=== PATIENT | female | born 1970 | race Caucasian/White ===

== ENCOUNTER → 2016-04-26 | Day surgery (SDC) | payer BC, OTHER ==
[2016-04-22 07:44] VITALS: Ht 165.1 cm; Wt 81.8 kg
[~2016-04-26] VITALS: Ht 165.1 cm; Wt 81.8 kg
[~2016-04-26] MED LIST: LIDOCAINE HCL 2% 2 ML VIAL (20MG/ML) ONE; MIDAZOLAM HCL 1 MG/ML 2ML VIAL ONE; MULT-506 PO; ONDANSETRON INJ 2 MG/ML 2 ML VIAL ONE; PROPOFOL IV EMULSION 10 MG/ML 20 ML VIAL IV ONE; SODIUM CHLORIDE 0.9% 500ML 500 ML IV ONE
--- NOTE | 2016-04-26 13:12 | Endo History and Physical ---
History & Physical Date of Service: Apr 26, 2016. Chief Complaint: Anemia and abnormal CT scan. Referring Physician: Dr. Ramirez History of Present Illness 45 yo CF who presents for EGD and colonoscopy secondary to anemia and abnormal CT scan. Past Surgical History Hx Cardiac Surgery: No Hx Internal Defibrillator: No Hx Pacemaker: No Hx Abdominal Surgery: Yes (TUBAL LIGATION) Hx of Implantable Prosthesis: No Hx Post-Op Nausea and Vomiting: No Hx Cancer Surgery: No Hx Thoracic Surgery: No Hx Orthopedic: No Hx Urinary Tract Surgery: No Family History IBD Social History Smoking Status: Former Smoker Hx Substance Use: No Hx Alcohol Use: Yes (OCCASS) Allergies Coded Allergies: Fentanyl (Verified Allergy, Mild, DIFFICULTY BREATHING, 04/26/16) Current Medications Reported Home Medications Medications Dose Route/Sig Max Daily Dose Days Date Category Multivitamin (Multivitamins) Tab 1 Tab PO QAM 04/22/16 Reported Vital Signs Weight (Kilograms): 81.82 Height (Feet): 5 Height (Inches): 5 Physical Exam General Appearance: WD/WN, no apparent distress Respiratory/Chest: Auscultation: breath sounds normal Cardiovascular: Heart Auscultation: RRR Abdomen: Bowel Sounds: normal Inspection & Palpation: soft, non-distended, no tenderness, guarding & rebound Assessment and Plan Assessment: 45 yo CF who presents for EGD and colonoscopy secondary to anemia and abnormal CT scan. Plan: Proceed with colonoscopy.
--- NOTE | 2016-04-26 14:00 | GI REPORT ---
Procedure Date: 04/26/2016 1:17 PM Procedure: Upper GI endoscopy Indications: Iron deficiency anemia, Abnormal CT of the GI tract Medicines: Monitored Anesthesia Care Complications: No immediate complications. Estimated Blood Loss: Estimated blood loss: none. Procedure: Pre-Anesthesia Assessment: - Prior to the procedure, a History and Physical was performed, and patient medications and allergies were reviewed. The patient's tolerance of previous anesthesia was also reviewed. The risks and benefits of the procedure and the sedation options and risks were discussed with the patient. All questions were answered, and informed consent was obtained. Prior Anticoagulants: The patient has taken no previous anticoagulant or antiplatelet agents. ASA Grade Assessment: II - A patient with mild systemic disease. After reviewing the risks and benefits, the patient was deemed in satisfactory condition to undergo the procedure. After obtaining informed consent, the endoscope was passed under direct vision. Throughout the procedure, the patient's blood pressure, pulse, and oxygen saturations were monitored continuously. The scope was introduced through the mouth, and advanced to the second part of duodenum. The upper GI endoscopy was accomplished without difficulty. The patient tolerated the procedure well. Findings: Mildly severe esophagitis with no bleeding was found. The stomach was normal. The examined duodenum was normal. Impression: - Mildly severe reflux esophagitis. - Normal stomach. - Normal examined duodenum. - No specimens collected. Recommendation: - Resume previous diet. - Continue present medications. - Return to GI office as previously scheduled. - Perform a colonoscopy today. Nilton Ochoa DO 04/26/2016 1:59:13 PM This report has been signed electronically. Note Initiated On: 04/26/2016 1:17 PM
--- NOTE | 2016-04-26 14:05 | GI REPORT ---
Procedure Date: 04/26/2016 1:37 PM Procedure: Colonoscopy Indications: Iron deficiency anemia, Abnormal CT of the GI tract Medicines: Monitored Anesthesia Care Complications: No immediate complications. Estimated Blood Loss: Estimated blood loss: none. Procedure: Pre-Anesthesia Assessment: - Prior to the procedure, a History and Physical was performed, and patient medications and allergies were reviewed. The patient's tolerance of previous anesthesia was also reviewed. The risks and benefits of the procedure and the sedation options and risks were discussed with the patient. All questions were answered, and informed consent was obtained. Prior Anticoagulants: The patient has taken no previous anticoagulant or antiplatelet agents. ASA Grade Assessment: II - A patient with mild systemic disease. After reviewing the risks and benefits, the patient was deemed in satisfactory condition to undergo the procedure. After I obtained informed consent, the scope was passed under direct vision. Throughout the procedure, the patient's blood pressure, pulse, and oxygen saturations were monitored continuously. The scope was introduced through the anus and advanced to the terminal ileum. The colonoscopy was performed without difficulty. The patient tolerated the procedure well. The quality of the bowel preparation was good. The terminal ileum, ileocecal valve, appendiceal orifice, and rectum were photographed. Findings: Non-bleeding internal hemorrhoids were found during retroflexion. The hemorrhoids were small. Impression: - Non-bleeding internal hemorrhoids. - No specimens collected. Recommendation: - Resume previous diet. - Continue present medications. - Repeat colonoscopy in 10 years for surveillance. - Return to GI office as previously scheduled. Nilton Ochoa DO 04/26/2016 2:04:30 PM This report has been signed electronically. Note Initiated On: 04/26/2016 1:37 PM
--- NOTE | 2016-04-26 14:07 | Discharge Instructions ---
Endoscopy Patient Instructions Date / Procedure(s) Performed Apr 26, 2016. Colonoscopy, EGD Allergy Information Coded Allergies: Fentanyl (Verified Allergy, Mild, DIFFICULTY BREATHING, 04/26/16) Discharge Date / Findings Apr 26, 2016. EGD: Reflux esophagitis Colonoscopy: Internal hemorrhoids Medication Instructions OK to resume all medications today as prescribed. Reported Home Medications Medications Dose Route/Sig Max Daily Dose Days Date Category Multivitamin (Multivitamins) Tab 1 Tab PO QAM 04/22/16 Reported Provider Instructions Activity Restrictions - No exercising or heavy lifting for 24 hours. - Do not drink alcohol the day of the procedure. - Do not drive a car or operate machinery until the day after the procedure. - Do not make any important decisions or sign important papers in 24 hours after the procedure. Following Day: - Return to full activity which may include returning to work/school. Diet Start your diet with liquids and light foods (jello, soup, juice, toast). Then eat your usual diet if not nauseated. Treatment For Common After Affects For mild abdominal pain, bloating, or excessive gas: - Rest - Eat lightly - Lie on right side Follow-Up Information Follow-up with Dr Ramirez as scheduled Anesthesia Information What You Should Know You have had a procedure that required some medicine to reduce anxiety and discomfort. This treatment is called moderate sedation. After receiving the treatment, you may be sleepy, but you will be able to breathe on your own. The effects of the treatment may last for several hours. Follow these instructions along with Activity/Diet recommendations noted above: * Do NOT do anything where dizziness or clumsiness would be dangerous. * Rest quietly at home today, then you can be up and about tomorrow. * Have a responsible person stay with you the rest of today. * You may have had an I.V. today. If so, you may take the dressing off later today. Recommendations Call your doctor if: * Trouble breathing * Continuous vomiting for more than 24 hours * Temperature above 101 degrees * Severe abdominal pain or bloating * Pain not relieved by pain medicine ordered * There is increased drainage or redness from any incision * A large amount of rectal bleeding greater than 2-3 tablespoons. (If you had a polyp/s removed or have hemorrhoids, a small amount of blood - from the rectum is to be expected.) * You have any unanswered questions or concerns. IN THE EVENT OF A SERIOUS EMERGENCY, GO TO THE NEAREST EMERGENCY ROOM Your discharge instructions were prepared by provider Nilton Ochoa. Patient Instructions Signature Page Ronn Case Patient (or Guardian) Signature/Date: I have read and understand the instructions given to me by my caregivers. Caregiver/RN/Doctor Signature/Date: The above-named patient and/or guardian has received patient instructions on this date. + Original Patient Signature Page (only) stays with chart. Please make copy for patient.
[2016-04-26 14:29] VITALS: BP 125/69; PULSE 64; O2SAT 100
--- NOTE | 2016-04-26 14:36 | Anesthesiology Progress Note ---
Anesthesia Post Op Note Date & Time Apr 26, 2016 at 14:35 Vital Signs Pain Intensity: 0 Vital Signs Past 12 Hours Date Time Temp Pulse Resp B/P Pulse Ox O2 Delivery O2 Flow Rate FiO2 04/26/16 14:29 64 16 125/69 100 Room Air 04/26/16 14:14 69 16 123/65 100 Room Air 04/26/16 13:59 73 16 140/64 98 Room Air 04/26/16 13:12 36.6 67 20 136/64 100 Room Air Notes Mental Status: alert / awake / arousable Nausea / Vomiting: adequately controlled Pain: adequately controlled Airway Patency, RR, SpO2: stable & adequate BP & HR: stable & adequate Hydration State: stable & adequate Anesthetic Complications: no major complications apparent
== END | disposition home or self-care (01) ==
LOC: C.GI 12:22
PROVIDERS: ATTEND Internal Medicine
DX: D50.9 Iron deficiency anemia, unspecified (principal); R93.3 Abnormal findings on diagnostic imaging of other parts of digestive tract; K64.8 Other hemorrhoids; K21.0 Gastro-esophageal reflux disease with esophagitis; Z98.51 Tubal ligation status; Z87.891 Personal history of nicotine dependence; Z68.30 Body mass index [BMI] 30.0-30.9, adult

== ENCOUNTER → 2016-05-03 | Outpatient (CLI) | payer OTHER ==
[~2016-05-03] MED LIST changes: -LIDOCAINE HCL 2% 2 ML VIAL (20MG/ML) ONE; -MIDAZOLAM HCL 1 MG/ML 2ML VIAL ONE; -ONDANSETRON INJ 2 MG/ML 2 ML VIAL ONE; -PROPOFOL IV EMULSION 10 MG/ML 20 ML VIAL IV ONE; -SODIUM CHLORIDE 0.9% 500ML 500 ML IV ONE
--- NOTE | 2016-05-04 12:41 | MAMMOGRAPHY REPORT ---
BILATERAL DIGITAL SCREENING MAMMOGRAM TOMOSYNTHESIS WITH CAD: 05/03/2016 CLINICAL HISTORY: Routine screening. Patient has no complaints. TECHNIQUE: Breast tomosynthesis in addition to standard 2D mammography was performed. Current study was also evaluated with a Computer Aided Detection (CAD) system. COMPARISON: Comparison is made to exams dated: 04/12/2014 mammogram, 05/02/2015 mammogram, 01/26/2012 mammogram, 08/18/2010 mammogram - [facility], and 05/02/2008. BREAST COMPOSITION: The tissue of both breasts is heterogeneously dense, which may obscure small ma sses. FINDINGS: There are scattered and grouped benign-appearing round microcalcifications bilaterally. N o suspicious mass, architectural distortion or cluster of new, suspicious microcalcifications is see n. IMPRESSION: ACR BI-RADS CATEGORY 1: NEGATIVE There is no mammographic evidence of malignancy. A 1 year screening mammogram is recommended. The p atient will receive written notification of the results. Approximately 10% of breast cancers are not detected with mammography. A negative mammographic repor t should not delay biopsy if a clinically suggestive mass is present. Nimo Torres M.D. ay/:05/03/2016 21:59:30 Ceramic Engineering Professor: Shyla BANUELOS(Karol)(Marti), [facility] letter sent: Normal 1/2 BI-RADS Code: ACR BI-RADS Category 1: Negative
== END | disposition home or self-care (01) ==
LOC: C.MAMM 15:32
PROVIDERS: ATTEND Obstetrics & Gynecology
DX: Z12.31 Encounter for screening mammogram for malignant neoplasm of breast (principal)

== ENCOUNTER → 2016-08-18 | Outpatient (CLI) | payer OTHER | END | disposition home or self-care (01) | LOC: C.PAPS 10:53 | PROVIDERS: ATTEND Obstetrics & Gynecology | DX: Z01.419 Encounter for gynecological examination (general) (routine) without abnormal findings (principal) ==

== ENCOUNTER → 2016-11-22 | Outpatient (CLI) | payer OTHER ==
[2016-11-22 16:59] LABS: BASO % 0.5 %; BASO ABS # 0.05 K/uL (0-0.2); COMPLETE YES; HEMATOCRIT 41.9 % (37-47); IG% 0.3 %; LYMPH % 24.8 %; LYMPH ABS # 2.27 K/uL (1.2-3.4); MEAN CELL VOLUME 89.1 fL (80-100); MEAN CORPUSCULAR HEMOGLOBIN 29.4 pg (25-34); MEAN CORPUSCULAR HGB CONC 32.9 g/dl (32-36); MEAN PLATELET VOLUME 10.5 fL (7.4-10.4); MONO % 7.5 %; NEUT % 61.9 %; PLATELET COUNT 358 K/uL (130-400); WHITE BLOOD COUNT 9.17 K/uL (4.8-10.8)
== END | disposition home or self-care (01) ==
LOC: C.LABBC 13:04
PROVIDERS: ATTEND Family Medicine
DX: B02.29 Other postherpetic nervous system involvement (principal)

== ENCOUNTER → 2017-05-04 | Outpatient (CLI) | payer OTHER ==
--- NOTE | 2017-05-05 14:40 | MAMMOGRAPHY REPORT ---
BILATERAL DIGITAL SCREENING MAMMOGRAM TOMOSYNTHESIS WITH CAD: 05/04/2017 CLINICAL HISTORY: Routine screening examination. TECHNIQUE: Breast tomosynthesis in addition to standard 2D mammography was performed. Current study was also evaluated with a Computer Aided Detection (CAD) system. COMPARISON: Comparison is made to exams dated: 05/03/2016 mammogram, 05/02/2015 mammogram, 04/12/2014 ma mmogram, 01/26/2012 mammogram, 08/18/2010 mammogram - [facility], and 05/02/2008. BREAST COMPOSITION: The tissue of both breasts is heterogeneously dense, which may obscure small mas ses. FINDINGS: There is a possible cluster of microcalcifications in the 12:00 versus central right breas t, for which additional spot magnification views are recommended. There are other scattered benign-appearing calcifications in the breasts. No other suspicious mass, a rchitectural distortion or cluster of microcalcifications is seen. IMPRESSION: ACR BI-RADS CATEGORY 0: INCOMPLETE EVALUATION: NEED ADDITIONAL IMAGING EVALUATION The possible cluster of microcalcifications in the 12:00 versus central right breast needs additional evaluation. The patient will be called to schedule an appointment. Approximately 10% of breast cancers are not detected with mammography. A negative mammographic report should not delay biopsy if a clinically suggestive mass is present. Nimo Torres M.D. ay/:05/04/2017 15:28:10 Mail Forwarding System Markup Clerk: Nicol BANUELOS (R)(Marti), [facility] letter sent: Addl Imaging 0 BI-RADS Code: ACR BI-RADS Category 0: Incomplete Evaluation: Need Additional Imaging Evaluation
== END | disposition home or self-care (01) ==
LOC: C.MAMM 15:06
PROVIDERS: ATTEND Family Medicine
DX: Z12.31 Encounter for screening mammogram for malignant neoplasm of breast (principal); R92.0 Mammographic microcalcification found on diagnostic imaging of breast

== ENCOUNTER → 2017-05-12 | Outpatient (CLI) | payer OTHER ==
--- NOTE | 2017-05-12 15:54 | MAMMOGRAPHY REPORT ---
UNILATERAL RIGHT DIGITAL DIAGNOSTIC MAMMOGRAM: 05/12/2017 CLINICAL HISTORY: Callback from screening mammogram for right breast calcifications. TECHNIQUE: Spot magnification right cc and ML views were obtained. COMPARISON: Comparison is made to exams dated: 05/04/2017 mammogram, 05/03/2016 mammogram, 05/02/2015 linda mogram, 04/12/2014 mammogram, 01/26/2012 mammogram, and 08/18/2010 mammogram - [facility]. BREAST COMPOSITION: The tissue of the right breast is heterogeneously dense, which may obscure small masses. FINDINGS: There is a small 4 mm cluster of round/punctate calcifications in the right 12:00 breast. One to 2 amorphous calcifications are also seen in this region on the cc view, which are shown to lay er more superiorly on the lateral view and are consistent with benign milk of calcium. When compared to prior exams, the calcifications are stable dating back to at least the March 2014 exam, and ar e considered benign given long-term stability. No new or suspicious clusters of microcalcifications are seen on the additional views. IMPRESSION: ACR BI-RADS CATEGORY 2: BENIGN The right breast calcifications are stable dating back to at least the 2013 exam, and are considered benign given long-term stability. There is no mammographic evidence of malignancy. A 1 year screenin g mammogram is recommended. The patient has been verbally notified of the results. Approximately 10% of breast cancers are not detected with mammography. A negative mammographic report should not delay biopsy if a clinically suggestive mass is present. Aicha Carranza M.D. ah/:05/12/2017 10:30:38 Electronic Field Service Engineer: Shyla BANUELOS(Karol)(M), [facility] letter sent: Normal / BI-RADS Code: ACR BI-RADS Category 2: Benign
== END | disposition home or self-care (01) ==
LOC: C.MAMM 10:10
PROVIDERS: ATTEND Family Medicine
DX: R92.0 Mammographic microcalcification found on diagnostic imaging of breast (principal)

== ENCOUNTER 2017-08-17 21:01 | Emergency (ER) | payer OTHER ==
[~2017-08-17] VITALS: Ht 165.1 cm; Wt 83.9 kg
[2017-08-17 21:10] VITALS: TEMP 37.4; Ht 165.1 cm; Wt 83.9 kg
[2017-08-17 21:12] VITALS: O2SAT 97
[2017-08-17] MEDS ORDERED: CYAN100020 PO (21:30)
[2017-08-17] MEDS ORDERED: PHEN37.585 PO (21:30)
[2017-08-17 21:38] LABS: HEMATOCRIT 43.6 % (37-47); HEMOGLOBIN 15.1 g/dL (12.0-16.0); MEAN CELL VOLUME 84.8 fL (80-100); MEAN CORPUSCULAR HEMOGLOBIN 29.4 pg (25-34); MEAN CORPUSCULAR HGB CONC 34.6 g/dl (32-36); MEAN PLATELET VOLUME 9.9 fL (7.4-10.4); PLATELET COUNT 398 K/uL (130-400); RED CELL DISTRIBUTION WIDTH CV 13.2 % (11.5-14.5); RED CELL DISTRIBUTION WIDTH SD 40.9 fL (36.4-46.3); WHITE BLOOD COUNT 8.36 K/uL (4.8-10.8)
[2017-08-17 21:56] LABS: PTT PATIENT 27.7 SECONDS (21.0-31.0)
[2017-08-17] MEDS ORDERED: SODIUM CHLORIDE 0.9% 1000ML 1,000 ML IV STA (21:58)
[2017-08-17 22:02] LABS: ALBUMIN 4.2 gm/dl (3.4-5.0); ALT/SGPT 19 U/L (12-78); AST/SGOT 13 U/L (15-37); BLOOD UREA NITROGEN 9 mg/dl (7-18); CALCIUM 9.5 mg/dl (8.5-10.1); CARBON DIOXIDE 28 mmol/L (21-32); CREATININE 0.75 mg/dl (0.60-1.20); GLUCOSE 93 mg/dl (70-99); POTASSIUM 3.1 mmol/L (3.5-5.1); SODIUM 138 mmol/L (136-145)
--- NOTE | 2017-08-17 22:04 | DIAGNOSTIC IMAGING REPORT ---
CHEST ONE VIEW PORTABLE CLINICAL HISTORY: Chest pain. COMPARISON STUDY: Chest radiograph and chest CT March 18, 2016. FINDINGS: Lung volumes are normal. There is no consolidation or evidence for pulmonary edema. No pneumothorax or pleural effusion is noted. Cardiomediastinal silhouette is normal. IMPRESSION: No acute cardiopulmonary findings. Electronically signed by: Gary Arroyo M.D. 08/17/2017 10:03 PM Dictated Date/Time: 08/17/2017 10:02 PM
[2017-08-17 22:07] LABS: ALKALINE PHOSPHATASE 69 U/L (45-117); CKMB < 0.5 ng/ml (0.5-3.6); TOTAL PROTEIN 7.9 gm/dl (6.4-8.2)
[2017-08-17] MEDS ORDERED: POTASSIUM CHLORIDE 10 MEQ TABCR PO STA (22:18)
[2017-08-17 22:44] LABS: LIPASE 139 U/L (73-393)
[2017-08-17 23:58] VITALS: BP 122/69; PULSE 81; O2SAT 98
--- NOTE | 2017-08-18 01:56 | EMERGENCY ROOM VISIT NOTE ---
History First contact with patient: 21:22 Chief Complaint: CHEST PAIN Stated Complaint: CHEST TIGHTNESS Nursing Triage Summary: Patient presents to ED via ALS with c/o chest pain. Chest pain started about 1.5 hours prior to arrival to ED. Patient reports pain started in her back, between shoulder blades and then moved to center of her chest. Describes the pain as a tightness. Denies nausea or vomiting with pain. Some shortness of breath. . EMS gave patient 2 doses of nitro and 324mg of PO Aspirin, which did relieve the chest pain. Patient is currently taking Adapex for weight loss through 's clinic. History of Present Illness The patient is a 46 year old female who presents to the Emergency Room with complaints of epigastric pain and mid back pain while eating cheese and crackers tonight that lasted for a few hours and is now resolved after EMS gave aspirin and nitroglycerin. Patient describes the pain as discomfort, 4 out of 10. Nothing made it worse. Patient denies exertional chest pain, dyspnea, abdominal pain, leg pain or swelling, lightheadedness, dizziness, diaphoresis. Patient states she has been underneath more stress lately. She has a therapist. Patient denies history of blood pressure cholesterol or diabetes. She occasionally smokes. She is traveled recently. Her father had heart disease in the 60s. There is no family history of blood clots. Patient is on a diet pill of Adipex. Review of Systems An 10 system review of systems was completed with positives and pertinent negatives listed in the HPI. Past Medical/Surgical History Medical Problems: (1) Anemia Family History FHx: heart disease Social History Smoking Status: Current Some Day Smoker Alcohol Use: occasionally Drug Use: none Marital Status: Housing Status: lives with family Occupation Status: employed Current/Historical Medications Scheduled Cyanocobalamin (Vitamin B12), 1,000 MCG PO DAILY Multivitamin (Multivitamin), 1 TAB PO QAM Phentermine Hcl (Adipex P), 37.5 MG PO DAILY Physical Exam Vital Signs Date Time Temp Pulse Resp B/P (MAP) Pulse Ox O2 Delivery O2 Flow Rate FiO2 08/17/17 23:58 81 122/69 98 08/17/17 22:06 78 115/77 98 Room Air 08/17/17 21:22 77 08/17/17 21:12 97 Room Air 08/17/17 21:10 37.4 77 124/84 99 Room Air 08/17/17 21:07 97 Room Air Physical Exam VITALS: Vitals are noted on the nurse's note and reviewed by myself. Vital signs stable. GENERAL: Pleasant femur, in no acute distress, nondiaphoretic, well-developed well-nourished. SKIN: The skin was without rashes, erythema, edema, or bruising. There is no tenting of the skin. Capillary reflex less than 2 seconds. HEAD: Normocephalic atraumatic. EARS: External auditory canals clear, tympanic membranes pearly cage without erythema or effusion bilaterally. EYES: Pupils equal round and reactive to light and accommodation. Conjunctivae without injection, sclerae without icterus. Extraocular movements intact. NOSE: Patent, turbinates without inflammation or discharge. MOUTH: Mucous membranes moist. Pharynx without erythema or exudate. Uvula midline. Airway patent. Tongue does not deviate. NECK: Supple without nuchal rigidity. No lymphadenopathy. No thyromegaly. Cervical spine is nontender. No JVD. HEART: Regular rate and rhythm without murmurs gallops or rubs. LUNGS: Clear to auscultation bilaterally without wheezes, rales or rhonchi. No retractions or accessory muscle use. ABDOMEN: Positive bowel sounds x 4. Normal tympanic percussion. Soft, nontender, without masses or organomegaly. Serrano sign negative. No guarding or rebound tenderness. No CVA tenderness MUSCULOSKELETAL: No muscle atrophy, erythema, or edema noted. NEURO: Patient was alert and oriented to person place and time. Normal sensation to light and sharp touch. No focal neurological deficits. Medical Decision & Procedures Laboratory Results 08/17/17 20:35 08/17/17 20:35 Test 08/17/17 20:35 08/17/17 21:18 08/17/17 21:23 08/17/17 23:28 Red Blood Count 5.14 M/uL (4.2-5.4) Mean Corpuscular Volume 84.8 fL (80-100) Mean Corpuscular Hemoglobin 29.4 pg (25-34) Mean Corpuscular Hemoglobin Concent 34.6 g/dl (32-36) RDW Standard Deviation 40.9 fL (36.4-46.3) RDW Coefficient of Variation 13.2 % (11.5-14.5) Mean Platelet Volume 9.9 fL (7.4-10.4) Prothrombin Time 10.7 SECONDS (9.0-12.0) Prothromb Time International Ratio 1.0 (0.9-1.1) Activated Partial Thromboplast Time 27.7 SECONDS (21.0-31.0) Partial Thromboplastin Ratio 1.1 Anion Gap 5.0 mmol/L (3-11) Est Creatinine Clear Calc Drug Dose 99.2 ml/min Estimated GFR () 110.0 Estimated GFR (Non- 94.9 BUN/Creatinine Ratio 12.6 (10-20) Calcium Level 9.5 mg/dl (8.5-10.1) Magnesium Level 2.2 mg/dl (1.8-2.4) Total Bilirubin 1.5 mg/dl (0.2-1) Aspartate Amino Transf (AST/SGOT) 13 U/L (15-37) Alanine Aminotransferase (ALT/SGPT) 19 U/L (12-78) Alkaline Phosphatase 69 U/L (45-117) Total Creatine Kinase 43 U/L (26-192) Creatine Kinase MB < 0.5 ng/ml (0.5-3.6) Creatine Kinase MB Ratio (0-3.0) Total Protein 7.9 gm/dl (6.4-8.2) Albumin 4.2 gm/dl (3.4-5.0) Globulin 3.7 gm/dl (2.5-4.0) Albumin/Globulin Ratio 1.1 (0.9-2) Lipase 139 U/L (73-393) Urine Color YELLOW Urine Appearance CLEAR (CLEAR) Urine pH 6.0 (4.5-7.5) Urine Specific [place] 1.018 (1.000-1.030) Urine Protein NEG (NEG) Urine Glucose (UA) NEG (NEG) Urine Ketones 2+ (NEG) Urine Occult Blood NEG (NEG) Urine Nitrite NEG (NEG) Urine Bilirubin NEG (NEG) Urine Urobilinogen NEG (NEG) Urine Leukocyte Esterase NEG (NEG) Bedside D-Dimer 107 ng/mlFEU (0-450) Bedside Troponin I < 0.030 ng/ml (0-0.045) Medications Administered Medications (Trade) Dose Ordered Sig/Taiwo Route Start Time Stop Time Status Last Admin Dose Admin Sodium Chloride 1,000 ml @ 999 mls/hr Q1H1M STAT IV 08/17/17 21:58 08/17/17 22:58 DC 08/17/17 22:02 999 MLS/HR Potassium Chloride (Klor-Con M10) 40 meq NOW STAT PO 08/17/17 22:18 08/17/17 22:19 DC 08/17/17 22:58 40 MEQ ED Course Prior records/ancillary studies reviewed. Triage Nursing notes reviewed. Additional history obtained from family. The patient's history was concerning for chest pain. Differential diagnosis: Etiologies such as cardiac ischemia, aortic dissection, pulmonary embolism, pneumonia, pneumothorax, musculoskeletal, infections, pericarditis, myocarditis , esophageal rupture, gastrointestinal, as well as others were entertained. Physical examination: As above. ER treatment provided: Patient was observed On reassessment the patient felt better. Diagnostic interpretation by me: The electrocardiogram was negative for pathologic change. Normal sinus, normal intervals, no acute ST-T wave changes. Impression normal sinus rhythm interpreted by myself The labs revealed 2 negative troponins greater than 2 hours apart. Negative d- dimer. Hypokalemia this is replaced orally Imaging studies: Chest x-ray with no acute consolidation, pneumothorax or free of my interpretation HEART SCORE: Hx: high/mod/low suspicion: 0 ECG: ST depression/nonspecific changes/normal: 0 Age: Greater than 65/45-64/less than 45: 1 Risk factors: (Hypertension, hyperlipidemia, diabetes, coronary disease, tobacco use, cocaine use): 2 Troponin: Greater than 2 times normal limits/1-2 times normal limits/normal: 0 Total: 3 Wells Score Symptoms of DVT 3pt: 0 Alternative diagnoses better explains illness 3pts: 0 Tachycardia greater than 100 1.5 pts 0 Immobilization greater than 3 days or surgery in the previous 4 weeks 1.5 pts: 0 Prior history of DVT or PE 1.5 pts: 0 Presence of hemoptysis 1pt: 0 Presence of malignancy 1pt: 0 (Score greater than 6 is high probability, score 2-6 moderate probability, score less than 2 low probability) Total: 0 Exam and history seem consistent with epigastric discomfort that could be related to esophageal spasm. Patient had unremarkable workup as above. She has been underneath more stress lately. She had 2 negative troponins. Negative d-dimer. Normal EKG. She was advised to follow-up family care for outpatient cardiology referral with the next week or 2 for further evaluation and workup for her symptoms and she was advised to either stop taking her diet pill or increase her electrolytes and hydration status as she was mildly dehydrated and potassium was low today most likely secondary to her diet pill. Patient was advised to return to the ER immediately for chest pain, difficulty breathing, diaphoresis, worsening signs or symptoms or as needed.By the evaluation outlined above emergent etiologies such as cardiac ischemia, aortic dissection, pulmonary embolism, pneumonia, pneumothorax, infections, pericarditis, myocarditis, gastrointestinal, as well as others were deemed relatively unlikely. The pt informed about the findings as listed above. All questions were answered and pleased with the treatment. Return instructions were outlined and the patient was discharged in stable condition. Case reviewed with my attending Referral: The patient was referred back to primary care physician for follow-up in 2 to 3 days for a recheck of the current condition. The chart was completed utilizing [employer] Speech voice recognition software. Grammatical errors, random word insertions, pronoun errors, and incomplete sentences are an occassional consequence of this system due to software limitations, ambient noise, and hardware issues. Any formal questions or concerns about the content, text, or information contained within the body of this dictation should be directly addressed to the physician assistant business manager for clarification. Medical Decision As above Medication Reconcilliation Current Medication List: was personally reviewed by me Blood Pressure Screening Patient's blood pressure: Normal blood pressure Impression Primary Impression: Hypokalemia Additional Impression: Epigastric pain Departure Information Dispostion Home / Self-Care Condition GOOD Forms Call Back Authorization, HOME CARE DOCUMENTATION FORM, Work Instructions, Return To Work: 1 day IMPORTANT VISIT INFORMATION Patient Instructions Chest Pain - [facility], Hypokalemia Aguilar, My [facility] Additional Instructions Your potassium is low today. Recommend that you eat potassium containing products such as white potatoes and bananas. You were slightly dehydrated also. Both of these are most likely from taking your diet pill causing the dehydration and the low potassium. Recommend that you eat a well balanced diet and stay hydrated if you decide to continue taking your diet pill. Acetaminophen(Tylenol) may be used for fever or pain. Use 500mg every 4 -6 hours as needed. Avoid using more than 3000mg in a 24 hour period. Rest and drink plenty of fluids as tolerated. Continue current medications. Avoid strenuous activities and anything that worsens your pain. Resume normal activities once your symptoms resolve. Return to the ER immediately for worsening or persistent chest pain, abdominal pain, vomiting, fevers, chest pains, difficulty breathing, worsening of your condition, or as needed. Follow up with your primary physician in 2-3 days for a recheck of your current condition. Recommend outpatient cardiology follow-up for your chest pains today. Your family care doctor can arrange follow-up for this. Work Instructions Return To Work: 1 day Problem Qualifiers
== END 2017-08-17 23:58 | disposition home or self-care (01) ==
LOC: C.EDB 21:01 → EDBD 21:01 → C.EDB 23:58
DX: E87.6 Hypokalemia (principal); R10.13 Epigastric pain; F17.210 Nicotine dependence, cigarettes, uncomplicated; Z79.899 Other long term (current) drug therapy

== ENCOUNTER 2018-07-31 16:45 | Observation (INO) ==
[2018-07-31] MEDS ORDERED: MoRPHine SULFATE 4 MG/ML 1 ML CARP\\VIAL IV STA (17:02)
[2018-07-31] MEDS ORDERED: ONDANSETRON INJ 2 MG/ML 2 ML VIAL IV STA (17:02)
[2018-07-31] MEDS ORDERED: SODIUM CHLORIDE 0.9% 1000ML 1,000 ML IV SCH (17:15)
[2018-07-31 17:38] LABS: Basophils # (auto) 0.12 K/uL (0-0.2); Basophils % (auto) 1.8 %; Eosinophils # (auto) 0.56 K/uL (0-0.5); Eosinophils % (auto) 8.4 %; Hematocrit (blood only) 37.5 % (37-47); Hemoglobin 12.8 g/dL (12.0-16.0); Immature Granulocytes # (auto) 0.02 K/uL (0.00-0.02); Immature Granulocytes % (auto) 0.3 %; Lymphocytes # (auto) 2.87 K/uL (1.2-3.4); Lymphocytes % (auto) 43.1 %; Mean Corpuscular Hgb Conc 34.1 g/dL (32-36); Mean Platelet Volume 9.3 fL (7.4-10.4); Monocytes # (auto) 0.61 K/uL (0.11-0.59); Monocytes % (auto) 9.2 %; Neutrophils # (auto) 2.48 K/uL (1.4-6.5); Neutrophils % (auto) 37.2 %; Platelet Count 275 K/uL (130-400); RDW Coefficient of Variation 13.7 % (11.5-14.5); RDW Standard Deviation 42.2 fL (36.4-46.3); Red Blood Count 4.41 M/uL (4.2-5.4); White Blood Count 6.66 K/uL (4.8-10.8)
[2018-07-31 18:07] LABS: Appearance Urine Turbid (Clear); Bacteria Urine Automated Negative (Negative); Bilirubin Urine Negative (Negative); Blood Urine Negative (Negative); Cast Urine Automated 0 /lpf (0-5); Color Urine Yellow; Epithelial Cell Urine Auto >30 /lpf (0-5); Glucose Urine UA Negative (Negative); Ketones Urine Negative (Negative); Leukocyte Esterase Urine Negative (Negative); Nitrite Urine Negative (Negative); Protein Urine Negative (Negative); RBC Urine Automated 0-4 /hpf (0-4); Specific Gravity Urine 1.027 (1.000-1.030); Urobilinogen Urine Negative (Negative); pH Urine 7.5 (4.5-7.5)
[2018-07-31 18:12] LABS: Albumin Level 3.4 gm/dl (3.4-5.0); BUN Creatinine Ratio 24.1 (10-20); Calcium 8.7 mg/dl (8.5-10.1); Creatinine Clr Calc Pharmacy 125.7 ml/min; Est GFR (African American) 127.1; Est GFR (Non-African American) 109.6; Potassium 3.5 mmol/L (3.5-5.1)
[2018-07-31 18:14] LABS: Albumin Globulin Ratio 0.9 (0.9-2); Bilirubin,Total 0.6 mg/dl (0.2-1); Globulin 3.8 gm/dl (2.5-4.0); Total Protein 7.2 gm/dl (6.4-8.2)
--- NOTE | 2018-07-31 18:16 | Ultrasound Report ---
ULTRASOUND RIGHT UPPER QUADRANT ABDOMEN CLINICAL HISTORY: Epigastric and right upper quadrant abdominal pain. COMPARISON STUDY: Abdominal CT dated 03/18/2016. TECHNIQUE: Real-time, grayscale, and color flow sonography of the right upper quadrant of the abdomen was performed. Images are reviewed in the transverse and longitudinal planes. FINDINGS: Liver: The liver is normal in size and echotexture. There is no intrahepatic biliary ductal dilatatio n. The main portal vein is patent. Gallbladder: Gallbladder is distended. There are numerous calcified shadowing gallstones. There is no gallbladder wall thickening or pericholecystic fluid. A sonographic Serrano's sign is reportedly pres ent. The common bile duct measures up to 0.7 cm in diameter. Pancreas: Visualized portions of the pancreatic head and body are normal in appearance. The splenic v ein is patent. Right kidney: Survey images of the right kidney demonstrate normal size and echotexture. There is no hydronephrosis. Ascites: None. IMPRESSION: Cholelithiasis with a distended gallbladder and positive sonographic Serrano's sign. Find ings are concerning for acute cholecystitis and surgical consultation is advised. Nuclear hepatobilia ry scan could be considered for confirmation if clinically warranted. Electronically signed by: Julien Aguila M.D. 07/31/2018 6:14 PM
--- NOTE | 2018-07-31 21:31 | History & Physical Report ---
Date of Service July 31, 2018 Assessment & Plan (1) S/P tonsillectomy: None (2) Biliary colic: This patient has escalating biliary colic. There is no evidence of acute cholecystitis at the present time. We discussed cholecystectomy and the patient would like to have it performed sooner rather than later. Going to put her in the hospital under observation status with plans to perform laparoscopic cholecystectomy tomorrow. I explained the possible need to convert to an open procedure. She understands all of that. I explained the possible complications associated with the procedure and she understands that as well. We will keep her n.p.o. with IV hydration. Present on Admission?: Yes History of Present Illness Chief Complaint: Biliary colic Primary Care Provider: Shira Ramirez MD This is a 47-year-old female who presented to the emergency room with a complaint of pain in the epigastric area. The patient states that over the last 3-4 months she has developed now her fourth episode of discomfort. It usually occurs in the morning and manifest as a sharp stabbing pain in the midepigastric region. It was sometimes radiates through to her back. The previous episodes have resolved spontaneously after 30-60 minutes. She again had pain this morning but this time it awoke her from sleep. It lasted an hour and then resolved but then returned later on in the afternoon. She had ate some sausage prior to the onset of the discomfort. She had nausea but did not vomit. She has not had a history of jaundice or hepatitis but in her mid teens had an episode of pancreatitis. She was told that they were unsure as to the etiology. She has not had a change in her bowel habits. She denies melena and hematochezia. She denies dysuria and hematuria. She has not had fever or chills. Allergies Allergy/AdvReac Type Severity Reaction Status Date / Time fentanyl Allergy Severe DIFFICULTY Verified 07/31/18 17:10 BREATHING-"THROAT CLOSES" Home Medications Home Medications Medication Instructions Recorded Confirmed Type lisdexamfetamine [Vyvanse] 30 mg PO DAILY 07/31/18 07/31/18 History Past Med/Surg History Medical History Abdominal adhesions Surgical History Lower back pain Had "radioablation" X 3 S/P exploratory laparotomy with lysis of adhesions S/P tonsillectomy Age 3 S/P tubal ligation [place] teeth extracted Family History Other Heart disease Hypertension Lung disease Social History Feels Safe at Home: Yes Smoking Status: Current every day smoker Review of Systems All systems reviewed & are unremarkable except as noted in HPI & below Physical Exam Vital Signs (Past 24 Hours): Last Vital Signs Temp 36.9 C 07/31/18 16:50 Pulse 78 07/31/18 17:42 Resp 20 07/31/18 17:42 BP 133/85 07/31/18 17:42 Pulse Ox 100 07/31/18 17:42 Constitutional: well developed and + acute distress Respiratory: normal respiratory effort, lungs clear to auscultation Cardiovascular: Rate/Rhythm: regular rate and regular rhythm Gastrointestinal (Abdomen): Inspection/Auscultation: normal bowel sounds; abdomen not distended Percussion/Palpation: abdomen soft; abdomen nontender Skin: no rashes, warm and dry Lymphatic: no cervical lymphadenopathy Results & Data Laboratory Results 07/31/18 07/31/18 07/31/18 Range/Units 17:21 17:21 17:20 WBC 6.66 (4.8-10.8) K/uL RBC 4.41 (4.2-5.4) M/uL Hgb 12.8 (12.0-16.0) g/dL Hct 37.5 (37-47) % MCV 85.0 (80-100) fL MCH 29.0 (25-34) pg MCHC 34.1 (32-36) g/dL RDW Std Deviation 42.2 (36.4-46.3) fL RDW Coeff of Kobe 13.7 (11.5-14.5) % Plt Count 275 (130-400) K/uL MPV 9.3 (7.4-10.4) fL Immature Gran % (Auto) 0.3 % Neut % (Auto) 37.2 % Lymph % (Auto) 43.1 % [place] % (Auto) 9.2 % Eos % (Auto) 8.4 % Baso % (Auto) 1.8 % Immature Gran # (Auto) 0.02 (0.00-0.02) K/uL Neut # (Auto) 2.48 (1.4-6.5) K/uL Lymph # (Auto) 2.87 (1.2-3.4) K/uL [place] # (Auto) 0.61 H (0.11-0.59) K/uL Eos # (Auto) 0.56 H (0-0.5) K/uL Baso # (Auto) 0.12 (0-0.2) K/uL Sodium (136-145) mmol/L Potassium (3.5-5.1) mmol/L Chloride (98-107) mmol/L Carbon Dioxide (21-32) mmol/L Anion Gap (3-11) BUN (7-18) mg/dl Creatinine (0.6-1.2) mg/dl Est Cr Clr Drug Dosing ml/min Est GFR ( Amer) Est GFR (Non-Af Amer) BUN/Creatinine Ratio (10-20) Glucose (70-99) mg/dl Calcium (8.5-10.1) mg/dl Total Bilirubin (0.2-1) mg/dl AST (15-37) U/L ALT (12-78) U/L Alkaline Phosphatase (45-117) U/L Total Protein (6.4-8.2) gm/dl Albumin (3.4-5.0) gm/dl Globulin (2.5-4.0) gm/dl Albumin/Globulin Ratio (0.9-2) Lipase (73-393) U/L Urine Color Yellow Urine Appearance Turbid H (Clear) Urine pH 7.5 (4.5-7.5) Ur Specific [place] 1.027 (1.000-1.030) Urine Protein Negative (Negative) Urine Glucose (UA) Negative (Negative) Urine Ketones Negative (Negative) Urine Blood Negative (Negative) Urine Nitrite Negative (Negative) Urine Bilirubin Negative (Negative) Urine Urobilinogen Negative (Negative) Ur Leukocyte Esterase Negative (Negative) Urine WBC (Auto) 1-5 (0-5) /hpf Urine RBC (Auto) 0-4 (0-4) /hpf U Hyaline Cast (Auto) 0 (0-5) /lpf U Epithel Cells (Auto) >30 H (0-5) /lpf Urine Bacteria (Auto) Negative (Negative) POC Ur Test Pending 07/31/18 Range/Units 17:20 WBC (4.8-10.8) K/uL RBC (4.2-5.4) M/uL Hgb (12.0-16.0) g/dL Hct (37-47) % MCV (80-100) fL MCH (25-34) pg MCHC (32-36) g/dL RDW Std Deviation (36.4-46.3) fL RDW Coeff of Kobe (11.5-14.5) % Plt Count (130-400) K/uL MPV (7.4-10.4) fL Immature Gran % (Auto) % Neut % (Auto) % Lymph % (Auto) % [place] % (Auto) % Eos % (Auto) % Baso % (Auto) % Immature Gran # (Auto) (0.00-0.02) K/uL Neut # (Auto) (1.4-6.5) K/uL Lymph # (Auto) (1.2-3.4) K/uL [place] # (Auto) (0.11-0.59) K/uL Eos # (Auto) (0-0.5) K/uL Baso # (Auto) (0-0.2) K/uL Sodium 138 (136-145) mmol/L Potassium 3.5 (3.5-5.1) mmol/L Chloride 108 H (98-107) mmol/L Carbon Dioxide 28 (21-32) mmol/L Anion Gap 2.0 L (3-11) BUN 14 (7-18) mg/dl Creatinine 0.57 L (0.6-1.2) mg/dl Est Cr Clr Drug Dosing 125.7 ml/min Est GFR ( Amer) 127.1 Est GFR (Non-Af Amer) 109.6 BUN/Creatinine Ratio 24.1 H (10-20) Glucose 95 (70-99) mg/dl Calcium 8.7 (8.5-10.1) mg/dl Total Bilirubin 0.6 (0.2-1) mg/dl AST 36 (15-37) U/L ALT 57 (12-78) U/L Alkaline Phosphatase 104 (45-117) U/L Total Protein 7.2 (6.4-8.2) gm/dl Albumin 3.4 (3.4-5.0) gm/dl Globulin 3.8 (2.5-4.0) gm/dl Albumin/Globulin Ratio 0.9 (0.9-2) Lipase 144 (73-393) U/L Urine Color Urine Appearance (Clear) Urine pH (4.5-7.5) Ur Specific [place] (1.000-1.030) Urine Protein (Negative) Urine Glucose (UA) (Negative) Urine Ketones (Negative) Urine Blood (Negative) Urine Nitrite (Negative) Urine Bilirubin (Negative) Urine Urobilinogen (Negative) Ur Leukocyte Esterase (Negative) Urine WBC (Auto) (0-5) /hpf Urine RBC (Auto) (0-4) /hpf U Hyaline Cast (Auto) (0-5) /lpf U Epithel Cells (Auto) (0-5) /lpf Urine Bacteria (Auto) (Negative) POC Ur Test
--- NOTE | 2018-07-31 21:42 | Emergency Department Note ---
Entered by Pino Squires acting as a scribe for Tevin Nugent MD History of Present Illness General Chief complaint: Abdominal Pain Stated complaint: ABDOMINAL PAIN Source: patient History of Present Illness Onset (ago): hour(s) (this morning) Location: abdomen (epigastric) Radiation: back Pain Consistency: + intermittent Quality: + sharp Associated symptoms: + other (abdominal feels bloated; nausea without vomiting); no fever/chills The patient is a 47 year old female who presents to the Emergency Room with complaints of intermittent sharp epigastric pain. The patient reports that her pain started this morning prior to eating, lasted about 1-1.5 hours, and then completely resolved. She states that 30 minutes after eating pasta with red sauce and sausage for lunch, the pain returned. She notes that her pain subsided somewhat prior to arrival, but the pain is still present. She reports that her pain radiates through to the back. She states that her abdomen feels somewhat bloated and uncomfortable. She reports that her last bowel movement was two years ago, which is normal for her. She notes nausea but denies vomiting. She denies diarrhea, melena, hematochezia, fevers, hematuria, or abnormal vaginal bleeding/discharge. The patient reports that she has experienced similar pain intermittently in the past few months, usually in the morning prior to eating. She reports a history of abdominal adhesiolysis surgery 10 years ago. She denies a history of gastric ulcers. Home Medications Home Medications Medication Instructions Recorded Confirmed Type lisdexamfetamine [Vyvanse] 30 mg PO DAILY 07/31/18 07/31/18 History Allergies Allergy/AdvReac Type Severity Reaction Status Date / Time fentanyl Allergy Severe DIFFICULTY Verified 07/31/18 17:10 BREATHING-"THROAT CLOSES" Past Med/Surg History Medical History Abdominal adhesions Surgical History Lower back pain Had "radioablation" X 3 S/P exploratory laparotomy with lysis of adhesions S/P tonsillectomy Age 3 S/P tubal ligation [place] teeth extracted Family History Other Heart disease Hypertension Lung disease Social History Feels Safe at Home: Yes Smoking Status: Current every day smoker Review of Systems See HPI for pertinent positives & negatives. and A total of 10 systems reviewed and were otherwise negative Physical Exam Vital Signs Vital Signs - 24 hr 07/31/18 16:50 07/31/18 17:42 Temperature 36.9 C Temperature Source Oral Sepsis Recent Fever Within 48 Hours No Sepsis New/Unexplained Change in Mental Status No Sepsis Action Taken by Nursing No Action Required Pulse Rate 82 Pulse Rate [Finger] 78 Respiratory Rate 20 20 Blood Pressure 135/87 Blood Pressure [Right Arm] 133/85 Blood Pressure Mean 103 Blood Pressure Mean [Right Arm] 101 Pulse Oximetry 99 100 Oxygen Delivery Method Room Air Room Air Constitutional: Vital signs reviewed. Eyes: Pupils are equal round reactive to light. Conjunctiva are noninjected. ENT: Pharynx is clear without erythema or exudate. Mucous membranes are moist. Neck supple without meningeal signs. Respiratory: Clear to auscultation bilaterally. Breath sounds are equal bilaterally. Cardiovascular: Regular rate and rhythm. No rubs or gallops. GI: Soft and nondistended. Epigastric and RUQ tenderness. No Serrano's sign. Bowel sounds are present. Musculoskeletal: No CVA tenderness. No peripheral edema. No lower extremity tenderness. Integumentary: No cyanosis. Neurological: The patient is awake and alert. No focal deficits. Psychiatric: Normal affect. Course 165: The patient was evaluated in room A3, and a complete history and physical examination were performed. 1855: I discussed test results with the patient, who states that she is feeling much better. Currently pending surgical consultation. 1904: I consulted Dr. Schaefer General Surgery. He will evaluate the patient. Consultations Consultation #1: I consulted Dr. Schaefer General Surgery. He will evaluate the patient. Time: 19:05 Administered Medications Discontinued Medications Sodium Chloride (Nss 1000ml) 1,000 mls @ 999 mls/hr IV .Q1H1M RASTA Stop: 07/31/18 18:15 Last Infusion: 07/31/18 18:29 Dose: 0 mls/hr Documented by: [id number] Admin: 07/31/18 17:24 Dose: 999 mls/hr Documented by: [id number] Morphine Sulfate (Morphine Sulfate) 4 mg IV NOW STA Stop: 07/31/18 17:03 Last Admin: 07/31/18 17:24 Dose: 4 mg Documented by: [id number] Ondansetron HCl (Zofran) 4 mg IV NOW STA Stop: 07/31/18 17:03 Last Admin: 07/31/18 17:24 Dose: 4 mg Documented by: [id number] Medical Decision Making Differential Diagnosis Differential diagnosis: gallstones, cholecystitis, gastritis, pancreatitis, bowel obstruction Medical Records I did perform a limited focused review of portions of the patient's old chart on the electronic medical record. In April 2016 the patient had an EGD which showed mildly severe reflux esophagitis. Home Medications Current Medication List: was personally reviewed by me Laboratory Data Attestation: I reviewed the patient's lab results. Result diagrams: 07/31/18 17:20 07/31/18 17:20 Lab Results 07/31/18 07/31/18 07/31/18 Range/Units 17:20 17:20 17:21 WBC 6.66 (4.8-10.8) K/uL RBC 4.41 (4.2-5.4) M/uL Hgb 12.8 (12.0-16.0) g/dL Hct 37.5 (37-47) % MCV 85.0 (80-100) fL MCH 29.0 (25-34) pg MCHC 34.1 (32-36) g/dL RDW Std Deviation 42.2 (36.4-46.3) fL RDW Coeff of Kobe 13.7 (11.5-14.5) % Plt Count 275 (130-400) K/uL MPV 9.3 (7.4-10.4) fL Immature Gran % (Auto) 0.3 % Neut % (Auto) 37.2 % Lymph % (Auto) 43.1 % [place] % (Auto) 9.2 % Eos % (Auto) 8.4 % Baso % (Auto) 1.8 % Immature Gran # (Auto) 0.02 (0.00-0.02) K/uL Neut # (Auto) 2.48 (1.4-6.5) K/uL Lymph # (Auto) 2.87 (1.2-3.4) K/uL [place] # (Auto) 0.61 H (0.11-0.59) K/uL Eos # (Auto) 0.56 H (0-0.5) K/uL Baso # (Auto) 0.12 (0-0.2) K/uL Sodium 138 (136-145) mmol/L Potassium 3.5 (3.5-5.1) mmol/L Chloride 108 H (98-107) mmol/L Carbon Dioxide 28 (21-32) mmol/L Anion Gap 2.0 L (3-11) BUN 14 (7-18) mg/dl Creatinine 0.57 L (0.6-1.2) mg/dl Est Cr Clr Drug Dosing 125.7 ml/min Est GFR ( Amer) 127.1 Est GFR (Non-Af Amer) 109.6 BUN/Creatinine Ratio 24.1 H (10-20) Glucose 95 (70-99) mg/dl Calcium 8.7 (8.5-10.1) mg/dl Total Bilirubin 0.6 (0.2-1) mg/dl AST 36 (15-37) U/L ALT 57 (12-78) U/L Alkaline Phosphatase 104 (45-117) U/L Total Protein 7.2 (6.4-8.2) gm/dl Albumin 3.4 (3.4-5.0) gm/dl Globulin 3.8 (2.5-4.0) gm/dl Albumin/Globulin Ratio 0.9 (0.9-2) Lipase 144 (73-393) U/L Urine Color Yellow Urine Appearance Turbid H (Clear) Urine pH 7.5 (4.5-7.5) Ur Specific [place] 1.027 (1.000-1.030) Urine Protein Negative (Negative) Urine Glucose (UA) Negative (Negative) Urine Ketones Negative (Negative) Urine Blood Negative (Negative) Urine Nitrite Negative (Negative) Urine Bilirubin Negative (Negative) Urine Urobilinogen Negative (Negative) Ur Leukocyte Esterase Negative (Negative) Urine WBC (Auto) 1-5 (0-5) /hpf Urine RBC (Auto) 0-4 (0-4) /hpf U Hyaline Cast (Auto) 0 (0-5) /lpf U Epithel Cells (Auto) >30 H (0-5) /lpf Urine Bacteria (Auto) Negative (Negative) Imaging Data Radiologist's Impression: Radiology results as stated below per my review and the radiologist's interpretation: ULTRASOUND RIGHT UPPER QUADRANT ABDOMEN CLINICAL HISTORY: Epigastric and right upper quadrant abdominal pain. COMPARISON STUDY: Abdominal CT dated 03/18/2016. TECHNIQUE: Real-time, grayscale, and color flow sonography of the right upper quadrant of the abdomen was performed. Images are reviewed in the transverse and longitudinal planes. FINDINGS: Liver: The liver is normal in size and echotexture. There is no intrahepatic biliary ductal dilatation. The main portal vein is patent. Gallbladder: Gallbladder is distended. There are numerous calcified shadowing gallstones. There is no gallbladder wall thickening or pericholecystic fluid. A sonographic Serrano's sign is reportedly present. The common bile duct measures up to 0.7 cm in diameter. Pancreas: Visualized portions of the pancreatic head and body are normal in appearance. The splenic vein is patent. Right kidney: Survey images of the right kidney demonstrate normal size and echotexture. There is no hydronephrosis. Ascites: None. IMPRESSION: Cholelithiasis with a distended gallbladder and positive sonographic Serrano's sign. Findings are concerning for acute cholecystitis and surgical consultation is advised. Nuclear hepatobiliary scan could be considered for confirmation if clinically warranted. Electronically signed by: Julien Aguila M.D. 07/31/2018 6:14 PM Blood Pressure Blood Pressure Findings: Elevated blood pressure Blood Pressure Disposition: elevated BP felt to be situational MDM Narrative I did evaluate the patient as noted above. The patient is presenting with epigastric and right upper quadrant pain. I was concerned about biliary colic. IV access was established. I did treat her with IV morphine and Zofran. She was also given normal saline IV and made n.p.o. The patient was placed on a continuous alarm security or surveillance monitor. I did order a urine analysis. There is no evidence of infection. I did order and review the patient's blood work as noted in the electronic medical record. Her white count is not elevated. LFTs are unremarkable. I did order an ultrasound of the right upper quadrant. I did review the images myself as well as the radiology report as described above. She does have gallstones and signs of cholecystitis. I did discuss the test results with the patient. She is feeling much better at this time. I did discuss the case with Dr. Schaefer of surgery who evaluated patient in the ED and hospitalized her for cholecystectomy. Impression & Plan Acute cholecystitis Discharge Plan Visit Data Chief Complaint: Abdominal Pain Stated Complaint: ABDOMINAL PAIN ED Provider: Tevin Nugent Discharge Problem: Acute cholecystitis Patient Disposition: Being Evaluated by Surgeon Forms Stand Alone Forms: Call Back Authorization, [facility] Prescriptions Prescriptions: No Action Vyvanse 30 mg capsule 30 mg PO DAILY RF: 0 Referrals Referrals: Shira Ramirez MD [Primary Care Provider] - The scribe's documentation has been prepared under my direction and personally reviewed by me in its entirety. I confirm that the note above accurately reflects all work, treatment, procedures, and medical decision making performed by me.
[2018-07-31] MEDS ORDERED: ONDANSETRON INJ 2 MG/ML 2 ML VIAL IV PRN (22:43)
[2018-07-31] MEDS: RIZATRIPTAN BENZOATE 10 MG TAB PO PRN (23:57)
[2018-07-31] MEDS: SODIUM CHLORIDE 0.9% 1000ML 1,000 ML IV SCH (23:57)
[2018-08-01] MEDS ORDERED: MoRPHine SULFATE 2 MG/ML CARP IV PRN ×2 (07:47)
[2018-08-01] MEDS: RIZATRIPTAN BENZOATE 10 MG TAB PO PRN (08:00)
[2018-08-01] MEDS: SODIUM CHLORIDE 0.9% 1000ML 1,000 ML IV SCH ×2 (10:07→19:15)
[2018-08-01] MEDS: MoRPHine SULFATE 4 MG/ML 1 ML CARP\\VIAL IV PRN ×2 (11:36→22:39)
[2018-08-01] MEDS ORDERED: LIDOCAINE HCL 2% 2 ML VIAL/AMP(20MG/ML) INFIL ONE (12:12)
[2018-08-01] MEDS ORDERED: ONDANSETRON INJ 2 MG/ML 2 ML VIAL ONE (12:12)
[2018-08-01] MEDS ORDERED: ePHEDrine sulfate 50 MG/ML AMP ONE (12:12)
[2018-08-01] MEDS ORDERED: NEOSTIGMINE METHYLSULFATE 5 MG/5 ML SYR ONE (12:12)
[2018-08-01] MEDS ORDERED: PHENYLEPHRINE HCL 10 MG/ML VIAL ONE (12:12)
[2018-08-01] MEDS ORDERED: SUCCINYLCHOLINE CHLORIDE 20 MG/ML 10 ML VIAL ONE (12:12)
[2018-08-01] MEDS ORDERED: GLYCOPYRROLATE 0.2 MG/ML VIAL ONE (12:12)
[2018-08-01] MEDS ORDERED: DEXAMETHASONE SOD INJ 4 MG/ML VIAL ONE (12:12)
[2018-08-01] MEDS ORDERED: PROPOFOL IV EMULSION 10 MG/ML 20 ML VIAL IV ONE (12:12)
[2018-08-01] MEDS ORDERED: MIDAZOLAM HCL 1 MG/ML 2ML VIAL ONE (12:12)
[2018-08-01] MEDS ORDERED: HYDROmorphone INJ 2 MG/ML SYR/VIAL ONE (12:13)
[2018-08-01] MEDS ORDERED: fentaNYL citrate 100 MCG/2 ML VIAL ONE (12:13)
--- NOTE | 2018-08-01 12:25 | Anesthesiology Consultation ---
Date of Service August 01, 2018 Assessment & Plan (1) Encounter for pre-operative examination: Chart Review Chart Review: Acceptable Risk for Surgery and Patient NOT seen in Pre Admission Testing Consults Requested none ASA ASA2 Proposed Anesthesia Anesthesia Type: General Risk / Benefits Reviewed With: PT / POA / Parent / Guardian, Accepts Plan and In formed Consent Obtained NPO Date Last Intake of Fluids: 07/31/18 Time Last Intake of Fluids: 23:30 Last Intake of Fluids Comment: sip of water this am at 0800 Date Last Intake of Solids: 07/31/18 Time Last Intake of Solids: 14:00 History Surgery Operation Date: 08/01/18 07:30 Proposed Procedures p Laparoscopic Cholecystectomy - Walter Schaefer MD Height/Weight Height: 5 ft 5 in Weight: 79.4 kg Allergies Allergy/AdvReac Type Severity Reaction Status Date / Time fentanyl Allergy Severe DIFFICULTY Verified 08/01/18 12:12 BREATHING-"THROAT CLOSES" Medications Home Medications Medication Instructions Recorded Confirmed Last Taken lisdexamfetamine [Vyvanse] 30 mg PO DAILY 07/31/18 07/31/18 Unknown rizatriptan [Maxalt] PRN 07/31/18 Unknown Active Medications Generic Name Dose Route Start Last Admin Trade Name Freq PRN Reason Stop Dose Admin Sodium Chloride 1,000 mls @ 100 mls/hr 07/31/18 23:00 08/01/18 10:07 Nss 1000ml IV 08/30/18 22:59 100 mls/hr .Q10H RASTA Administration Morphine Sulfate 4 mg 08/01/18 07:47 08/01/18 11:36 Morphine Sulfate IV 08/15/18 07:46 4 mg Q2H PRN Administration Severe Pain Rizatriptan Benzoate 10 mg 07/31/18 23:21 08/01/18 08:00 Maxalt PO 08/30/18 23:20 10 mg DAILY PRN Administration Migraines Past Medical History Medical History Abdominal adhesions Past Family History Family History Other Heart disease Hypertension Lung disease Past Surgical History Surgical History Lower back pain Had "radioablation" X 3 S/P exploratory laparotomy with lysis of adhesions S/P tonsillectomy Age 3 S/P tubal ligation [place] teeth extracted Social History Smoking Status: Current every day smoker tobacco type: cigarettes Smoking cigarettes per day: 3-4 per day Do You Dip or Chew Tobacco: No Hx Alcohol Use: Yes Alcohol type: wine alcohol intake frequency: holidays/special occasions only Hx Substance Use: No substance use type: does not use Physical Exam Vital Signs Last Vital Signs Temp 37.3 C 08/01/18 12:12 Pulse 81 08/01/18 12:12 Resp 18 08/01/18 12:12 BP 138/82 08/01/18 12:12 Pulse Ox 96 08/01/18 12:12 Testing Laboratory Results 07/31/18 17:20 07/31/18 17:20 Urine Color Yellow 07/31/18 17:21 Urine Appearance Turbid (Clear) H 07/31/18 17:21 Urine pH 7.5 (4.5-7.5) 07/31/18 17:21 Ur Specific [place] 1.027 (1.000-1.030) 07/31/18 17:21 Urine Protein Negative (Negative) 07/31/18 17:21 Urine Glucose (UA) Negative (Negative) 07/31/18 17:21 Urine Ketones Negative (Negative) 07/31/18 17:21 Urine Nitrite Negative (Negative) 07/31/18 17:21 Ur Leukocyte Esterase Negative (Negative) 07/31/18 17:21 Urine WBC (Auto) 1-5 /hpf (0-5) 07/31/18 17:21 Urine RBC (Auto) 0-4 /hpf (0-4) 07/31/18 17:21 U Hyaline Cast (Auto) 0 /lpf (0-5) 07/31/18 17:21 U Epithel Cells (Auto) >30 /lpf (0-5) H 07/31/18 17:21 Urine Bacteria (Auto) Negative (Negative) 07/31/18 17:21 08/01/18 07/31/18 12:14 17:21 POC Ur Test NEG Pending
[2018-08-01] MEDS ORDERED: ePHEDrine sulfate 50 MG/ML AMP IV PRN (12:28)
[2018-08-01] MEDS ORDERED: ATROPINE SULFATE 0.1 MG/ML 10ML SYR IV PRN (12:28)
--- NOTE | 2018-08-01 12:38 | History & Physical Bridge Note ---
Date of Service August 01, 2018 History & Physical Bridge Note I have examined the patient, reviewed the History & Physical and in the interval since the performance of the History & Physical I have noted the following changes of clinical significance: no changes noted
[2018-08-01] MEDS ORDERED: CEFAZOLIN 2000MG 2,000 MG/15 ML SYR IV ONE (12:40)
[2018-08-01] MEDS ORDERED: CEFAZOLIN 2,000 MG/15 ML IV PUSH IV ONE (12:41)
[2018-08-01] MEDS ORDERED: HEPARIN (PORCINE) 1000 UNIT/ML 10 ML (CATH LAB USE ONLY) ONE (12:43)
[2018-08-01] MEDS ORDERED: CONRAY 60% 50 ML VIAL ONE (12:43)
[2018-08-01] MEDS ORDERED: BUPIVACAINE 0.5 % 5 MG/1 ML MPF 30ML VIAL ONE (12:43)
[2018-08-01] MEDS: CEFAZOLIN 250 MG/ML 1 GM VIAL ONE ×2 (12:46→13:35)
[2018-08-01] MEDS ORDERED: ACETAMINOPHEN 1000 MG/100 ML IV IV ONE (13:51)
--- NOTE | 2018-08-01 13:51 | Post Operative Brief Note ---
Immediate Post Op Note v1 Date of Surgery August 01, 2018 Pre & Post Diagnosis Operation Date: 08/01/18 07:30 Pre-Op Diagnosis: cholelithiasis, cholecystitis Post-Op Diagnosis: cholelithiasis, cholecystitis Procedure Operation Date: 08/01/18 07:30 Actual Procedures p Laparoscopic Cholecystectomy(Not Applicable) - Walter Schaefer MD Surgeon Walter Schaefer MD Utility Service Worker Augustina Villanueva PA-C Estimated Blood Loss 5 Findings Consistent with Post-Op Diagnosis Specimens Gallbladder and contents Complications none
[2018-08-01] MEDS ORDERED: ROCURONIUM BROMIDE 10 MG/ML 5 ML VIAL ONE (14:24)
[2018-08-01] MEDS: HYDROmorphone INJ 1 MG/ML SYRINGE IV PRN ×8 (14:34→15:09)
--- NOTE | 2018-08-01 15:06 | Anesthesiology Progress Note ---
Date of Service August 01, 2018 Anesthesia Post Procedure Vital Signs Vital Signs: Temp Pulse Pulse Pulse Resp BP BP 08/01/18 14:54 65 14 08/01/18 14:45 62 14 08/01/18 14:35 62 14 08/01/18 14:25 67 14 08/01/18 14:19 36.3 C L 75 16 08/01/18 12:12 37.3 C 81 18 138/82 08/01/18 07:54 37.2 C 77 18 07/31/18 22:46 37.0 C 88 18 07/31/18 21:39 79 18 07/31/18 17:42 78 20 07/31/18 16:50 36.9 C 82 20 135/87 BP Pulse Ox 08/01/18 14:54 152/95 H 94 08/01/18 14:45 159/84 H 99 08/01/18 14:35 132/80 99 08/01/18 14:25 140/79 100 08/01/18 14:19 133/78 97 08/01/18 12:12 96 08/01/18 07:54 117/77 98 07/31/18 22:46 152/97 H 96 07/31/18 21:39 151/94 H 97 07/31/18 17:42 133/85 100 07/31/18 16:50 99 Pain Intensity Abdomen: Pain Intensity: 5 Head: Pain Intensity: 7 Notes Mental Status: alert / awake / arousable Patient Amnestic to Procedure: Yes Nausea / Vomiting: adequately controlled Pain: adequately controlled Airway Patency, RR, SpO2: stable & adequate BP & HR: stable & adequate Hydration State: stable & adequate Anesthetic Complications: no major complications apparent and Pt Satisfied with anesthetic care
[2018-08-01] MEDS ORDERED: ACETAMINOPHEN 325 MG TAB PO PRN (15:45)
[2018-08-01] MEDS ORDERED: OXYCODONE/ACETAMINOPHEN 5mg/325mg TAB PO PRN (15:45)
--- NOTE | 2018-08-01 19:52 | Operative Report ---
DATE OF OPERATION: 08/01/2018 PREOPERATIVE DIAGNOSES: Cholelithiasis, cholecystitis. POSTOPERATIVE DIAGNOSIS: Cholelithiasis, cholecystitis. PROCEDURE: Laparoscopic cholecystectomy. SURGEON: Walter Schaefer MD. FORKLIFT TECHNICIAN: Augustina Villanueva PA-C. FINDINGS: The gallbladder was mildly dilated. There was a significant component of the gallbladder that was not attached to the liver and the fundus. The cystic duct was narrow. The cystic duct was short. There was a lot of edema surrounding the gallbladder and in the planes between the gallbladder and the liver, but there were no adhesions to the gallbladder. TECHNIQUE: The patient was given a general anesthetic and the area was prepped and draped in the usual sterile fashion. A transverse incision was made below the umbilicus, carried down through the subcutaneous tissue to the fascia, which was grasped with 2 Odette clamps and incised between. The peritoneum was identified, incised, and the introducer was placed bluntly. The abdomen was then insufflated to a pressure of 15 mmHg of carbon dioxide. The upper midline, midclavicular and anterior axillary introducers were placed under direct vision through small skin incision. Traction was placed on the gallbladder and beginning on the anterior surface of the infundibulum and on the lateral side, the peritoneum was opened and peeled down towards the common bile duct. I then dissected the gallbladder away from the liver on the lateral side working up along towards the body of the gallbladder. I then performed a similar dissection on the medial side. There were some thickened peritoneum anteriorly that was divided, that exposed the anterior surface of the cystic duct. I then peeled additional connective tissue and lymphatics on the lateral side of the duct and then on the medial side, that allowed me to identify the cystic artery, which was fairly adherent to the cystic duct. I was able to bluntly establish a plane between those 2 structures and in placing lateral traction, I was able to establish a plane behind the cystic duct. The common bile duct was easily visualized and it was clear that the cystic duct was only approximately 2-3 cm in length. I kept the cystic duct dissection up near the gallbladder and once I identified the cystic artery, established a plane behind that and skeletonized it, I had a good window. I could confidently identify the cystic duct-gallbladder junction. Two clips were placed in the proximal cystic duct, one near the junction with the gallbladder and it was divided. The cystic artery was then clipped twice proximally and once near the gallbladder and divided. I elevated the infundibulum and dissected the gallbladder away from the liver. There was 1 posterior branch of the artery that was very small, but it was clipped and divided. The gallbladder was then peeled off the liver bed using electrocautery. This was done with ease. A small hole was created in the gallbladder and there was a small amount of bile leakage, but I grabbed the hole and prevented further bile leakage. Once the gallbladder was freed, it was placed into an Endobag and brought out through the upper midline incision. The introducer was replaced. The subdiaphragmatic and subhepatic spaces were irrigated and irrigation was removed and that was repeated until the return was clear. The liver bed of the gallbladder was inspected and there was no bleeding. The previously placed clips were intact. Gas was allowed to escape and the introducers were removed. The fascia of the umbilical and upper midline introducer sites was closed with interrupted 0 Vicryl and the skin of all the incisions was closed with 4-0 Monocryl in either an interrupted or running subcuticular fashion. It must be pointed out that the skin and subcutaneous tissue and peritoneum were all anesthetized with 0.5% Marcaine prior to making the incisions. The local was then reinforced. The skin was cleansed, dried, benzoin placed, Steri-Strips applied. Estimated blood loss was 5 mL. Sponge, needle and instrument counts were correct prior to closure. The patient tolerated the surgical procedure without complication and was transferred to recovery. I attest to the content of the Intraoperative Record and any orders documented therein. Any exception s are noted below.
[2018-08-02] MEDS: OXYCODONE/ACETAMINOPHEN 5mg/325mg TAB PO PRN ×2 (05:44→13:46)
[2018-08-02] MEDS: SODIUM CHLORIDE 0.9% 1000ML 1,000 ML IV SCH (05:45)
--- NOTE | 2018-08-02 07:57 | Surgery Progress Note ---
Date of Service August 02, 2018 Assessment & Plan (1) Biliary colic: Postop day 1, status post laparoscopic cholecystectomy Doing well Pain is controlled Will evaluate whether she tolerates breakfast and lunch for soft diet If so can discharge later on this afternoon Present on Admission?: Yes Subjective Postoperative day #1 Denies nausea and vomiting Tolerated clear liquids Having pain but controlled with analgesics Physical Exam Vital Signs (Past 24 Hours): Last Vital Signs Temp 37.1 C 08/02/18 03:23 Pulse 68 08/02/18 03:23 Resp 14 08/02/18 03:23 BP 115/72 08/02/18 03:23 Pulse Ox 94 08/02/18 03:23 Gastrointestinal (Abdomen): Inspection/Auscultation: abdomen not distended Percussion/Palpation: abdomen soft; abdomen nontender Results & Data Laboratory Results 08/01/18 07/31/18 Range/Units 12:14 17:21 POC Ur Test NEG Cancelled
[2018-08-02] MEDS ORDERED: IBUPROFEN 600 MG TAB PO PRN (14:43)
--- NOTE | 2018-08-02 15:09 | XRay Report ---
SINGLE VIEW CHEST CLINICAL HISTORY: Dyspnea. 1 day status post cholecystectomy. FINDINGS: An AP, portable, upright chest radiograph is compared to study dated 08/17/2017. The examina tion is degraded by portable technique and patient rotation. The cardiomediastinal silhouette is unr emarkable. The lungs and pleural spaces are clear. No pneumothorax is seen. The bony thorax is grossl y intact. Trace intraperitoneal free air is seen below the diaphragm. Cholecystectomy clips are noted in the right upper quadrant. IMPRESSION: 1. No active disease in the chest. 2. Trace intraperitoneal free air seen below the diaphragm. This may be related to the reported histo ry of recent surgery. Clinical correlation will be required. Electronically signed by: Julien Aguila M.D. 08/02/2018 3:07 PM
--- NOTE | 2018-08-03 13:56 | Discharge Summary ---
Date of Service August 03, 2018 Admission HPI Per Admitting Provider This is a 47-year-old female who presented to the emergency room with a complaint of pain in the epigastric area. The patient states that over the last 3-4 months she has developed now her fourth episode of discomfort. It usually occurs in the morning and manifest as a sharp stabbing pain in the midepigastric region. It was sometimes radiates through to her back. The previous episodes have resolved spontaneously after 30-60 minutes. She again had pain this morning but this time it awoke her from sleep. It lasted an hour and then resolved but then returned later on in the afternoon. She had ate some sausage prior to the onset of the discomfort. She had nausea but did not vomit. She has not had a history of jaundice or hepatitis but in her mid teens had an episode of pancreatitis. She was told that they were unsure as to the etiology. She has not had a change in her bowel habits. She denies melena and hematochezia. She denies dysuria and hematuria. She has not had fever or chills. Principal Diagnosis symptomatic cholelithiasis Discharge Exam Constitutional WD/WN, vitals as above well developed and well nourished; no acute distress and not ill appearing Respiratory normal respiratory effort, lungs clear to auscultation Gastrointestinal (Abdomen) Inspection/Auscultation: abdomen normal to inspection; abdomen not distended Percussion/Palpation: + abdomen tender (at incision sites, appropriate post op) and abdomen soft; no guarding and abdomen not rigid Skin no rashes, warm and dry + incision (covered with steri strips, clean an dry) Psychiatric A+Ox3, euthymic affect Discharge Data Allergies Allergy/AdvReac Type Severity Reaction Status Date / Time fentanyl Allergy Severe DIFFICULTY Verified 08/01/18 12:12 BREATHING-"THROAT CLOSES" Consultations 07/31/18 21:36 ED Decision to Admit Stat Procedures Performed Operation Date: 08/01/18 07:30 Actual Procedures p Laparoscopic Cholecystectomy(Not Applicable) - Walter Schaefer MD Ordered Studies 07/31/18 17:02 US gallbladder Stat Hospital Course (1) Biliary colic: Patient was admitted to medical/surgical floor from the emergency room and started on IV fluids, IV Morphine prn pain, IV Zofran prn nausea, and kept NPO for procedure the following day. Patient was taken to operating room for laparoscopic cholecystectomy possible open by Dr. Schaefer. Patient found to have gallstones and cholecystitis. Patient tolerated procedure well and was transferred back to medical/surgical floor for post operative care. She was continued on IV fluids, IV Morphine but PO Percocet and Tylenol were added post op, IV ZOfran prn nausea, clear liquids and advance as tolerated, SCDs for DVT prophylaxis, incentive spirometer and activity as tolerated. Patient was evaluated on Postop day 1. Vitals stable, afebrile. Tolerated clear liquids. Pain moderate, just took Percocet (2 tabs) for pain. Diet was advanced to regular diet for lunch. Patient had some shortness of breath in the afternoon and right arm pain/numbness. She was evaluated and her abdomen was soft, tender at incision sites but no peritonitis or guarding. Lungs were CTA bilaterally, no wheezing, rales, ronchi, and she was able to hold a conversation wtihout shortness of breath. Believed most of her shortness of breath was due to splinting due to abdominal pain as she was not on top of her pain. She was advised to take Percocet and Iburpofen and use incentive spirometer and walk hallway. STat CXR was unremarkable. Patient evaluated about 2 hours later and feeling completely better. No further shortness of breath, pain controlled and ready to go home. Patient was discharged home in the evening on POD # 1 in stable condition and was advised to report back to emergency room if she were to develop shortness of breath, unable to take deep breath, fever, chills, increasing abdominal pain. f/u surgical office in 2 weeks Total Time Total Time Spent Total Time Spent (In Minutes): 1 hour Total Time Includes: Examination of the Patient, Discharge Planning, Medication Reconciliation and Communication With Other Providers Discharge Plan Discharge Items Patient Disposition: Home - Self-Care Reason For Visit: BILIARY COLIC Discharge Diagnosis: same Discharge Goals: Decrease discomfort and Improve function Activity: Per 'Additional Instructions' section Non-emergency contact: Surgeon Call non-emergency contact if: your symptoms worsen, your pain is not controlled, your pain is worsening, your pain is concerning for you, you have a fever, your temperature is above 101, your wound has increased redness and your wound has increased drainage Follow-up/Referrals: Shira Ramirez MD [Primary Care Provider] - Diet: Regular Addtl Provider Instructions: Post-Surgical ~Discharge Instructions Activity Recommendations: - lifting limitation: (10 pounds for 2 weeks), - exercise/sex/sports limit: (nonstrenuous for 2 weeks), - driving or machine use limit: (none for 1 week), - Shower/bathe limit: (may shower beginning tomorrow) Diet: - Resume previous diet SPECIAL CARE INSTRUCTIONS: - May shower in 24 hours. Let water run over area and pat dry. - Leave steri strips on for one week. - Call the surgeon's office with any questions or concerns - - (ex. temperature higher than 101 degrees F, excessive bleeding or pain). MEDICATIONS: - Resume previous medications unless instructed otherwise by your surgeon. - Ibuprofen 600 mg every 6 hours with food - Percocet 1 every 4 hours, as needed for pain FOLLOW UP VISIT: - If not already scheduled, please call the office to schedule a two week follow-up appointment. Office number Prescriptions: New oxycodone-acetaminophen 5-325 mg tablet 1 tab PO Q4H PRN (Reason: pain) Qty: 18 RF: 0 Continued Vyvanse 30 mg capsule 30 mg PO DAILY RF: 0 rizatriptan [Maxalt] 10 mg Tablet PRN (Reason: Migraine Headache) RF: 0 Stand-Alone Forms: Call Back Authorization, Pending Sale To [facility], [facility] Discharge Orders: Discharge Order (Routine); Ordered 08/02/18 Ordered By: Augustina Villanueva Admission Data Admit Date/Time: 07/31/18 21:31 Attending Provider: Walter Schaefer Admit Provider: Walter Schaefer Primary Care Provider: Shira Ramirez Other Providers: Walter Schaefer Service: Surgical Services Other Interventions: Discharge Summary Assessment (RN) Last Done: 08/02/18 16:50 Pending Studies at Discharge: Yes (gallbladder pathology, will be reviewed at follow-up visit) DC Date/Time DO NOT enter until pt leaves facility: 08/02/18 17:23
== END 2018-08-02 17:23 | disposition home or self-care (01) ==
LOC: 3W 16:45 → ED 16:45 → 3W 22:58